=== PATIENT | male | born 1985 | race Caucasian/White ===

== ENCOUNTER → 2016-08-29 | Outpatient (CLI) | payer OTHER ==
[~2016-08-29] MED LIST: AZIT500T3 PO
--- NOTE | 2016-08-29 07:35 | DIAGNOSTIC IMAGING REPORT ---
SCROTAL ULTRASOUND CLINICAL HISTORY: Left testicular pain. COMPARISON STUDY: None. TECHNIQUE: Grayscale and color and duplex Doppler sonography of the scrotum was performed. FINDINGS: The right testis measures 4.2 x 2.1 x 3.2 cm and the left measures 4 x 1.6 x 0.9 cm. Color flow was symmetric within each testis. No testicular mass was identified. Several microliths were noted within the testes. There was no evidence of epididymitis. Note was made of a left-sided varicocele. IMPRESSION: 1. No evidence of testicular torsion. No testicular mass. 2. Small to moderate left-sided varicocele. 3. No evidence of epididymitis. 4. Scattered microliths within the testes, a finding of doubtful significance. Electronically signed by: Dutch Artis M.D. 08/29/2016 7:34 AM Dictated Date/Time: 08/29/2016 7:31 AM
== END | disposition home or self-care (01) ==
LOC: C.ULTR 04:07
PROVIDERS: ATTEND Physician Assistant Medical
DX: I86.1 Scrotal varices (principal)

== ENCOUNTER → 2017-01-23 | Outpatient (CLI) | payer OTHER ==
[2017-01-23 16:56] LABS: BLOOD UREA NITROGEN 17 mg/dl (7-18); BUN/CREATININE RATIO 14.1 (10-20); CALCIUM 9.2 mg/dl (8.5-10.1); CARBON DIOXIDE 25 mmol/L (21-32); CHLORIDE 108 mmol/L (98-107); GLUCOSE 102 mg/dl (70-99); POTASSIUM 3.9 mmol/L (3.5-5.1); SODIUM 140 mmol/L (136-145)
[2017-01-23 16:59] LABS: CHOLESTEROL 176 mg/dl (0-200); CHOLESTEROL/HDL RATIO 3.4; HDL CHOLESTEROL 52 mg/dl; LDL CHOLESTEROL CALCULATED 97 mg/dl; TRIGLYCERIDES 133 mg/dl (0-150); VERY LOW DENSITY LIPOPROT CALC 27 mg/dl
== END | disposition home or self-care (01) ==
LOC: C.LAB 16:06
PROVIDERS: ATTEND Physician Assistant Medical
DX: Z00.00 Encounter for general adult medical examination without abnormal findings (principal)